=== PATIENT | female | born 1985 | race Caucasian/White ===

== ENCOUNTER 2019-06-02 17:18 | Emergency (ER) | payer OTHER ==
[2019-06-02] MEDS ORDERED: SODIUM CHLORIDE 0.9% 1000 ML INFUS.BAG IV ONE (17:26)
[2019-06-02] MEDS ORDERED: ACETAMINOPHEN 1000 MG/100 ML VIAL (NON FORMULARY) IVPB ONE (17:26)
[2019-06-02] MEDS ORDERED: METOCLOPRAMIDE HCL INJECTION 10 MG/2 ML VIAL IVPUSH ONE (17:26)
[2019-06-02 17:27] VITALS: TEMP 98; BMI 25.9
[2019-06-02] MEDS ORDERED: ACETAMINOPHEN INJECTION 100 ML IVPB ONE (17:43)
[2019-06-02] MEDS ORDERED: METOCLOPRAMIDE HCL INJECTION 10 MG/2 ML VIAL ONE (17:43)
--- NOTE | 2019-06-02 17:49 | PDOC ---
History of Present Illness - General Chief Complaint: Headache Stated Complaint: HEADACHE S/P DELIVERY ON 05/28/2019 History Source: Patient Exam Limitations: No Limitations - History of Present Illness Initial Comments: 06/02/19 17:43 34 yo [id number] 6 days post s/p c section for repeat c section ( failure to progress) here wtih c/o headache. pt states started few hours ago. frontal. no vision changes. no leg swelling. no cp no sob. no h.o eclempsia or preeclempsia. no focal weakness. headache is not positional. no h/o migraines, however pt does get headaches. states onset was slow and progressive, started while she was resting on the couch. no h/o htn during or prior to . 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 took tylenol at 3 pm 2 hours prior to arrival. minimal relief. 06/02/19 17:56 Past History - Past Medical History Allergies/Adverse Reactions: Allergies Allergy/AdvReac Type Severity Reaction Status Date / Time No Known Allergies Allergy Verified 06/02/19 17:23 Home Medications: Ambulatory Orders No122/Iron/Folic Acid [ Multi Tablet] 1 each PO DAILY 06/02/19 COPD: No - Suicide/Smoking/Psychosocial Hx Smoking History: Never smoked Hx Alcohol Use: No Drug/Substance Use Hx: No Review of Systems - Review of Systems Constitutional: No: Chills, Diaphoresis, Unexplained wgt Loss HEENTM: No: Blurred Vision Respiratory: No: Cough, Orthopnea Cardiac (ROS): No: Chest Pain, Edema, Irregular Heart Rate ABD/GI: No: Abdominal Distended Neurological: Yes: Headache. No: Numbness, Tremors, Weakness All Other Systems: Reviewed and Negative *Physical Exam - Vital Signs Last Vital Signs Temp Pulse Resp BP Pulse Ox 98 F 68 18 163/93 98 06/02/19 17:19 06/02/19 17:19 06/02/19 17:19 06/02/19 17:19 06/02/19 17:19 - Physical Exam Comments: 06/02/19 17:46 awake alert lungs clear bilat heart rrr abd soft nt nd incision cdi, heart rrr no mrg. ext wwp no edema. no calf tenderness. nuero alert oriented x 3. 5/5 all four ext. ED Treatment Course - LABORATORY CBC & Chemistry Diagram: 06/02/19 17:30 06/02/19 17:30 Medical Decision Making - Medical Decision Making 06/02/19 17:47 34 yo F s/p c section 6 days post here with c/o headache. elevated bp 163 /93 . no cp no edema. no weakness no n/v. differential dehydration tension headache. post lp headache. post pre- eclempsia. will send pre-eclempsia labs , ct head ivf reglan and tylenol reasses. 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 & [facility]. 06/02/19 18:36 pt with labs mild LDH elevation urice acid pending. negative protein in urine. no uti. given ivf, and reglan feeling improved. bp improved with pain control, 156/90. called pt primary OB, pending call back. [phone]. 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 06/02/19 19:22 d/w pt regarding risk of hypertension and headache in indlucing seizure, eclempsia, and thrombosis, head ct pending. pt would like to go home despite lengthy discussion. d/w pt OB, will see pt tomorrow however strongly recommend observation. pt given warning signs to return to ed. rpt bp 148/85 states zero headache. *DC/Admit/Observation/Transfer Diagnosis at time of Disposition: headache - Discharge Dispostion Disposition: AGAINST MEDICAL ADVICE Condition at time of disposition: Fair Decision to Admit order: No - Referrals - Patient Instructions Printed Discharge Instructions: Pre-eclampsia and -induced Hypertension (Alternative Therapy) Additional Instructions: understanding you are leaving against advice for observation. your blood pressure was elevated today which can be concerning for post preeclempsia. your bp improved however it could continue to rise. you should return immediately for confusion, return of headache. blurry vision, shortness of breath, leg swelling or any concerns. you should follow up with your doctor tomorrow Dr Zacarias. your labs today are normal. - Post Discharge Activity
[2019-06-02 17:59] LABS: BASO % 0.7 % (0-2.0); EOS % 2.7 % (0-4.5); HEMATOCRIT 43.2 % (32.4-45.2); HEMOGLOBIN 14.6 GM/dl (10.7-15.3); LYMPH % 24.5 % (8-40); MCHC 33.7 g/dl (32.0-36.0); MEAN CELL VOLUME 97.8 fl (80-96); MEAN PLT VOLUME 6.4 fl (7.5-11.1); MONO % 4.9 % (3.8-10.2); NEUT % 67.2 % (42.8-82.8); PLATELET COUNT 292 K/MM3 (134-434); RBC 4.42 M/mm3 (3.60-5.2); RDW 13.2 % (11.6-15.6); WHITE BLOOD COUNT 7.6 K/mm3 (4.0-10.8)
[2019-06-02 18:08] LABS: PROTHROMBIN TIME (PATIENT) 11.2 SEC (10.2-13.0)
[2019-06-02 18:14] LABS: ALBUMIN 3.3 g/dl (3.4-5.0); BILIRUBIN,TOTAL 1.1 mg/dl (0.2-1); CALCIUM 8.5 mg/dl (8.5-10); CREATININE 0.7 mg/dl (0.55-1.3); POTASSIUM 4.4 mmol/L (3.5-5.1); TOT PROT 6.5 g/dl (6.4-8.2)
[2019-06-02 18:24] LABS: EPITHELIAL CELLS FEW /hpf
[2019-06-02 18:43] VITALS: PULSE 58
[2019-06-02 19:07] VITALS: BP 141/87
== END 2019-06-02 19:48 | disposition left against medical advice (07) ==
LOC: FER 17:18
PROC: 3E0337Z Introduction of Electrolytic and Water Balance Substance into Peripheral Vein, Percutaneous Approach (ICD-10-PCS; principal; 2019-06-02)
PROC: 3E033GC Introduction of Other Therapeutic Substance into Peripheral Vein, Percutaneous Approach (ICD-10-PCS; 2019-06-02)
DX: G44.89 Other headache syndrome (principal)
CPT/HCPCS: 36415; 70450-TC; 80053; 81003; 81015; 83615; 84550; 85025; 85610; 85730; 99282-25; J7030